=== PATIENT | male | born 1995 | race Caucasian/White ===

== ENCOUNTER 2016-09-09 00:27 | Emergency (ER) | payer OTHER ==
[~2016-09-09 00:27] MED LIST: CETI1SYR3; ONDA4TAB14 PO; ZOF8 PO
== END 2016-09-09 00:45 | disposition left against medical advice (07) ==
LOC: E/R 00:27
DX: Z53.21 Procedure and treatment not carried out due to patient leaving prior to being seen by health care provider (principal)